=== PATIENT | female | born 1940 | race Caucasian/White ===

== ENCOUNTER → 2018-04-10 10:55 | Outpatient (CLI) | payer MEDICARE, OTHER ==
[2016-05-30 13:02] VITALS: BMI 16.4
[~2018-04-10 10:55] MED LIST: ASPIRIN81 MG PO; CALCIUM 600+D T1 TA1 PO; FERROUS SULFAT325 MG PO; HYZAAR 100-25 T1 TAB PO; ICAPS AREDS1 TAB.SA PO; NIZORAL 2 % CRE15 GM TOPICAL; PACERONE100 MG PO; ULTRAM50 MG PO
== END | disposition home or self-care (01) ==
LOC: D.MRI 10:55
DX: M50.33 Other cervical disc degeneration, cervicothoracic region (principal)